=== PATIENT | female | born 1955 | race Caucasian/White ===

== ENCOUNTER 2016-09-13 23:29 | Emergency (ER) | payer MEDICARE, OTHER ==
[2016-09-14] MEDS ORDERED: HYDROmorphone 2 MG/ML SDV IM ONE (00:21)
[2016-09-14] MEDS ORDERED: Ondansetron 4 MG Tab.DIS PO ONE (00:21)
[2016-09-14] MEDS ORDERED: Acetaminophen/HYDROcodone 325-5 MG Tab PO ONE (02:01)
[2016-09-14 02:26] VITALS: BP 135/72
--- NOTE | 2016-09-15 09:51 | ER ---
DATE SEEN: 09/13/2016 TIME SEEN: The patient was seen at 2345 hours. CHIEF COMPLAINT: Back pain HISTORY OF PRESENT ILLNESS: The patient has had intermittent low back pain that has gotten worse recently. She has problems with her hips and her knees. is . The patient lives with her boyfriend. The patient is brought into the hospital by her son and his girlfriend. The patient denies loss of sensation of lower extremities or incontinence of urine or stool. She has difficulty getting up and rolling over, because of her low back pain. The back pain became more noticeable at 1900 hours this evening when she had difficulty getting out of a car. No history of falls or fractured wrist. 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 No history of recent or intercurrent bleeding. PAST MEDICAL HISTORY: Significant for alcoholism. She has drunk alcohol for 40 plus years, still continues drink. Subdural hemorrhage, bilateral knee and hip arthritis, dyslipidemia, depression, GERD, seizures, chronic kidney disease, myocardial infarction, DVTs, and cognitive deficits. MEDICATIONS: 1. Prilosec 40 mg b.i.d. 2. Aspirin 325 mg daily. 3. Warfarin 2.5 mg daily as directed. 4. B complex. 5. C vitamin complex. 6. Keppra 750 mg b.i.d. 7. Multivitamins with iron. 8. Fenofibric acid (choline) 135 mg daily, probably for triglyceride elevation. 9. Atorvastatin 20 mg daily. 10.Prozac 40 mg daily. REVIEW OF SYSTEMS: Negative except for that noted above. PHYSICAL EXAMINATION: VITAL SIGNS: Blood pressure 132/62, heart rate 87, respirations 14, oxygen saturation 97%, and temperature is 37.2 degrees. The patient's BMI is 40.4 - obesity. CONSTITUTIONAL: The patient has moderate pain, lying on her back, does not move. She has marked low back pain when I rotate her on her side so I could examine her lower back. HEENT: PERRLA intact. Pharynx without abnormality. Missing many teeth. NECK: Without thyromegaly, bruits, or masses in neck. LUNGS: Clear to auscultation without rales, rhonchi. HEART: S1, S2. No irregular rate and rhythm. No murmur. ABDOMEN: Increased abdominal girth. I do not feel the liver edge. Mild discomfort. BACK: Marked pain L1, L2, L3, L4 vertebrae. No paraspinal muscle spasm. Straight leg raise unable to perform because of the pain. I was able to raise her leg to no more than 10 degrees bilaterally. Absent knee jerks and ankle jerks. Muscle bulk lower extremities intact. No loss of sensation in the perineal or anal area. LABORATORY DATA: CAT scan of the back reveals L2-3 significant porous cystic changes without disk space and spinal listhesis. No compression fracture. Hemoglobin 7.9, white count 7.9, has microcytic iron deficiency anemia. Complete metabolic panel; sodium 138, potassium 3.7, chloride 109, CO2 is decreased at 21, GFR 50, BUN and creatinine ratio 10.9, and glucose 137. Total bilirubin 2.7, AST is triple ALT reflecting her alcoholism 65, ALT is 24, alkaline phosphatase 48, and calcium normal 8.9. Urinalysis; moderate occult blood, moderate bilirubin, large leukocyte esterase, and urine bacteria many. DIAGNOSES: 1. Marked cystic L2-3 bone changes with [id number] causing the patient's pain with marked spondylolisthesis. 2. Urinary tract infection - asymptomatic. 3. IDSA suggests not treating asymptomatic bacteria. She will not be treated, but has urine culture pending. 4. Severe back pain secondary to L2-3 cystic changes [id number]. 5. Obesity, 40.1 BMI. 6. Significant alcoholism with significant liver disease changes. At this point, I would anticipate liver to be enlarged but is not on palpation, consequently has experienced fibrosis with elevation of bilirubin and tripling of the AST ratio to ALT. 7. Anemia secondary either to blood loss or alcohol-induced bone marrow changes with thrombocytopenia of 104,000. Serum iron and iron binding capacity pending. I did not do a rectal exam as it was difficult for her to get up and move around. She had a dramatic response with decreased pain with Dilaudid 1 mg IM and Zofran 4 mg orally. PLAN: The patient is sent home with 8 tablets Vicodin 1 q.4 hours p.r.n. pain and to follow up with doctor in 7 days. She has not seen a doctor in 2 or more years. She needs support for ambulation, using a walker. She needs to be around a responsible adult. With the drinking alcohol, she has significant liver disease with cirrhosis. /[id number] LEONARDO/LEEANN
[2016-09-16 23:05] LABS: UNSATURATED IRON BIND CAPACITY 474 ug/dL (112-347)
== END 2016-09-14 02:23 | disposition home or self-care (01) ==
LOC: FB.ED 23:29
DX: M43.16 Spondylolisthesis, lumbar region (principal); N39.0 Urinary tract infection, site not specified; E66.9 Obesity, unspecified; Z68.41 Body mass index [BMI] 40.0-44.9, adult; F10.20 Alcohol dependence, uncomplicated; K70.2 Alcoholic fibrosis and sclerosis of liver; E80.7 Disorder of bilirubin metabolism, unspecified; D64.9 Anemia, unspecified; D69.6 Thrombocytopenia, unspecified; M17.0 Bilateral primary osteoarthritis of knee; M16.10 Unilateral primary osteoarthritis, unspecified hip; E78.5 Hyperlipidemia, unspecified; F32.9 Major depressive disorder, single episode, unspecified; K21.9 Gastro-esophageal reflux disease without esophagitis; N18.9 Chronic kidney disease, unspecified; I25.2 Old myocardial infarction; Z86.718 Personal history of other venous thrombosis and embolism; Z79.01 Long term (current) use of anticoagulants; R41.89 Other symptoms and signs involving cognitive functions and awareness; Z79.82 Long term (current) use of aspirin; Z79.899 Other long term (current) drug therapy
CPT/HCPCS: 36415; 72131; 80053; 81001; 83540; 83550; 85025; 85610; 87086; 87088; 87186; 96372; 99284; A9270; J1170; 99283

== ENCOUNTER 2016-09-19 09:37 | Inpatient (IN) | payer MEDICARE, OTHER ==
--- NOTE | 2016-09-19 10:04 | EDM.PDOC ---
ED HPI GENERAL MEDICAL PROBLEM - General Chief Complaint: Gastrointestinal Problem Stated Complaint: BLOODY STOOL Time Seen by Provider: 09/19/16 09:45 Source of Information: Reports: Patient, Family, Old Records History Limitations: Reports: No Limitations - History of Present Illness INITIAL COMMENTS - FREE TEXT/NARRATIVE: 61 yo female on ASA and warfarin and who has a chronic hx of alcohol abuse presents with weakness and bloody stools. Was here in the ER here recently with back pain and was found to have an incidental UTI for which she is now on Bactrim DS(since Thursday). EMS transported. Patient has had dried blood in her mouth since at least yesterday. A recent INR was 3.5 about 9 days ago in the clinic per her significant other. Is not a smoker. Has had a little coughing since yesterday. Has been SOB for "awhile". EMS did not start an IV, but did initiate oxygen per nc. - Related Data Allergies Allergy/AdvReac Type Severity Reaction Status Date / Time No Known Allergies Allergy Verified 09/19/16 09:50 Home Meds: Home Meds B Complex With Vitamin C [B-Complex Plus Vitamin C] 1 tab PO DAILY 07/04/13 [ History] FLUoxetine [PROzac] 40 mg PO DAILY 07/04/13 [History] atorvaSTATin [Lipitor] 20 mg PO BEDTIME 07/04/13 [History] levETIRAcetam [Keppra] 750 mg PO BID 04/12/14 [History] Omeprazole [Prilosec] 40 mg PO BID 08/16/14 [History] Aspirin 325 mg PO DAILY PRN 09/13/16 [History] Fenofibric Acid (Choline) [Fenofibric Acid] 135 mg PO DAILY 09/13/16 [History] Multivits-Min/Iron/FA/Lutein [Centrum Silver Women Tablet] 1 tab PO DAILY [History] Warfarin Sodium [Jantoven] 2.5 mg PO ASDIRECTED 09/13/16 [History] Past Medical History Cardiovascular History: Reports: High Cholesterol, Hypertension, CO, Stents, Other (See Below) Other Cardiovascular History: Filter [employer] History: Reports: Psychiatric History: Reports: Depression - Past Surgical History GI Surgical History: Reports: Cholecystectomy, Colonoscopy Social & Family History - Tobacco Use Smoking Status *Q: Never Smoker Years of Tobacco use: 20 Used Tobacco, but Quit: Yes Month Tobacco Last Used: 15 yrs ago Second Hand Smoke Exposure: No - Caffeine Use Caffeine Use: Reports: Energy drinks - Alcohol Use Days Per Week of Alcohol Use: 7 Number of Drinks Per Day: 3 Total Drinks Per Week: 21 - Recreational Drug Use Recreational Drug Use: No - Living Situation & Occupation Living situation: Reports: other (with significant other of nine yrs) Occupation: unemployed ED ROS GENERAL - Review of Systems Review Of Systems: See Below Constitutional: Reports: Weakness, Fatigue HEENT: Reports: Other (oral bleeding ? since yesterday.) Respiratory: Reports: Shortness of Breath Cardiovascular: Reports: No Symptoms Endocrine: Reports: Fatigue GI/Abdominal: Reports: No Symptoms, Bloody Stool : Reports: No Symptoms Musculoskeletal: Reports: No Symptoms Skin: Reports: No Symptoms Neurological: Reports: No Symptoms ED EXAM, GI/ABD - Physical Exam Exam: See Below Exam Limited By: No Limitations General Appearance: Alert, WD/WN, No Apparent Distress Eyes: Bilateral: Normal Appearance, Pale Conjunctiva Ears: Normal External Exam, Normal Canal, Hearing Grossly Normal, Normal TMs Nose: Normal Inspection, Normal Mucosa, No Blood Throat/Mouth: Normal Oropharynx, Normal Voice, No Airway Compromise, Other ( Dried blood on her teeth.) Head: Atraumatic, Normocephalic Neck: Normal Inspection, Supple, Non-Tender Respiratory/Chest: No Respiratory Distress, Lungs Clear, Normal Breath Sounds, No Accessory Muscle Use Cardiovascular: Regular Rate, Rhythm, No Edema GI/Abdominal: Normal Bowel Sounds, Soft, Non-Tender, No Distention Back Exam: Normal Inspection Extremities: Normal Inspection, Normal Range of Motion, Non-Tender, No Pedal Edema Neurological: Alert, Oriented, CN II-XII Intact, No Motor/Sensory Deficits Psychiatric: Normal Affect, Normal Mood Skin Exam: Warm, Dry, Pallor Lymphatic: No Adenopathy Course - Vital Signs Text/Narrative:: LR 150 ml/h IV, oxygen per nasal cannula, Unasyn 1.5 gm IV, Azithromycin 500 mg IV, FFP 4 units IV ordered, Vitamin K 5 mg subcut, pRBC's 2 untis ordered CXR-pneumonia bilaterally Dr. Slater called @ 1100h Last Recorded V/S: Last Vital Signs Temp 36.5 C 09/19/16 09:50 Pulse 83 09/19/16 09:50 Resp 17 09/19/16 09:50 BP 122/42 L 09/19/16 09:50 Pulse Ox 96 09/19/16 09:50 - Orders/Labs/Meds Orders: Active Orders 24 hr Category Date Time Status Cardiac Monitoring [RC] .As Directed Care 09/19/16 09:50 Active Oxygen Therapy Adult [Oxygen Therapy, ED] [RC] Care 09/19/16 09:50 Active ASDIRECTED Chest 1V Frontal [CR] Stat Exams 09/19/16 09:49 Taken CULTURE BLOOD [BC] Stat Lab 09/19/16 10:50 Ordered FRESH FROZEN PLASMA [BBK] Stat Lab 09/19/16 10:18 Received TYPE AND SCREEN [BBK] Stat Lab 09/19/16 10:18 Received Ampicillin/Sulbactam Na [Unasyn] 1.5 gm Med 09/19/16 10:47 Active Sodium Chloride 0.9% [Normal Saline] 50 ml IV ONETIME Azithromycin [Zithromax] 500 mg Med 09/19/16 10:47 Active Sodium Chloride 0.9% [Normal Saline] 250 ml IV ONETIME Lactated Ringers [Ringers, Lactated] 1,000 ml Med 09/19/16 10:00 Active IV ASDIRECTED Sodium Chloride 0.9% [Normal Saline] 250 ml Med 09/19/16 11:00 Ordered IV ASDIRECTED Sodium Chloride 0.9% [Saline Flush] Med 09/19/16 09:52 Active 10 ml FLUSH ASDIRECTED PRN Saline Lock Insert [OM.PC] Routine Oth 09/19/16 09:52 Ordered Transfuse PRBC [Transfuse Red Blood Cells] [COMM] Stat Oth 09/19/16 10:59 Ordered Medication Orders Lactated Ringer's (Ringers, Lactated) 1,000 mls @ 150 mls/hr IV ASDIRECTED DILLON Last Admin: 09/19/16 10:12 Dose: 150 mls/hr Ampicillin Sodium/Sulbactam (Sodium 1.5 gm/ Sodium Chloride) 50 mls @ 100 mls/ hr IV ONETIME ONE Stop: 09/19/16 11:16 Azithromycin 500 mg/ Sodium (Chloride) 250 mls @ 250 mls/hr IV ONETIME ONE Stop: 09/19/16 11:46 Sodium Chloride (Normal Saline) 250 mls @ 100 mls/hr IV ASDIRECTED DILLON Sodium Chloride (Saline Flush) 10 ml FLUSH ASDIRECTED PRN PRN Reason: Keep Vein Open Last Admin: 09/19/16 10:12 Dose: 10 ml Labs: Laboratory Tests 09/19/16 09/19/16 09/19/16 Range/Units 10:18 10:18 10:18 WBC 20.4 H (4.5-12.0) X10-3/uL RBC 3.89 (3.23-5.20) x10(6)uL Hgb 7.1 L (11.5-15.5) g/dL Hct 23.9 L (30.0-51.3) % MCV 61.4 L (80-96) fL MCH 18.3 L (27.7-33.6) pg MCHC 29.7 L (32.2-35.4) g/dL RDW 23.3 H (11.5-15.5) % Plt Count 99 L (125-369) X10(3)uL PT > 100.0 H* (8.7-11.1) Sodium 128 L D (135-145) mmol/L Potassium 4.0 (3.5-5.3) mmol/L Chloride 98 L D (100-110) mmol/L Carbon Dioxide 18 L (23-29) mmol/L BUN 56 H D (8-23) mg/dL Creatinine 2.5 H* (0.6-1.3) mg/dL Est Cr Clr Drug Dosing TNP Estimated GFR (MDRD) 20 L (>60) BUN/Creatinine Ratio 22.4 H (9-20) Glucose 95 (80-116) mg/dL Calcium 8.2 L (8.6-10.2) mg/dL Total Bilirubin 4.5 H (0.1-1.3) mg/dL AST 101 H D (5-27) IU/L ALT 28 H D (14-26) IU/L Alkaline Phosphatase 52 L (56-112) IU/L Total Protein 7.3 (6.0-8.0) g/dL Albumin 2.7 L (3.2-4.6) g/dL Globulin 4.6 g/dL Albumin/Globulin Ratio 0.6 Urine Color (YELLOW) Urine Appearance (CLEAR) Urine pH (5.0-6.5) Ur Specific [place] (1.010-1.025) Urine Protein (NEGATIVE) mg/dL Urine Glucose (UA) (NEGATIVE) mg/dL Urine Ketones (NEGATIVE) mg/dL Urine Occult Blood (NEGATIVE) Urine Nitrite (NEGATIVE) Urine Bilirubin (NEGATIVE) Urine Urobilinogen (NEGATIVE) mg/dL Ur Leukocyte Esterase (NEGATIVE) Urine RBC (0) Urine WBC (0) Ur Squamous Epith Cells (NS,R,O) 09/19/16 Range/Units 10:34 WBC (4.5-12.0) X10-3/uL RBC (3.23-5.20) x10(6)uL Hgb (11.5-15.5) g/dL Hct (30.0-51.3) % MCV (80-96) fL MCH (27.7-33.6) pg MCHC (32.2-35.4) g/dL RDW (11.5-15.5) % Plt Count (125-369) X10(3)uL PT (8.7-11.1) Sodium (135-145) mmol/L Potassium (3.5-5.3) mmol/L Chloride (100-110) mmol/L Carbon Dioxide (23-29) mmol/L BUN (8-23) mg/dL Creatinine (0.6-1.3) mg/dL Est Cr Clr Drug Dosing Estimated GFR (MDRD) (>60) BUN/Creatinine Ratio (9-20) Glucose (80-116) mg/dL Calcium (8.6-10.2) mg/dL Total Bilirubin (0.1-1.3) mg/dL AST (5-27) IU/L ALT (14-26) IU/L Alkaline Phosphatase (56-112) IU/L Total Protein (6.0-8.0) g/dL Albumin (3.2-4.6) g/dL Globulin g/dL Albumin/Globulin Ratio Urine Color Yellow (YELLOW) Urine Appearance Slightly cloudy (CLEAR) Urine pH 5.0 (5.0-6.5) Ur Specific [place] 1.015 (1.010-1.025) Urine Protein Negative (NEGATIVE) mg/dL Urine Glucose (UA) Normal (NEGATIVE) mg/dL Urine Ketones Negative (NEGATIVE) mg/dL Urine Occult Blood Moderate H (NEGATIVE) Urine Nitrite Negative (NEGATIVE) Urine Bilirubin Small H (NEGATIVE) Urine Urobilinogen >=12 H (NEGATIVE) mg/dL Ur Leukocyte Esterase Negative (NEGATIVE) Urine RBC Not seen (0) Urine WBC Not seen (0) Ur Squamous Epith Cells Few H (NS,R,O) Meds: Medications Generic Name Dose Route Start Last Admin Trade Name Freq PRN Reason Stop Dose Admin Lactated Ringer's 1,000 mls @ 150 mls/hr 09/19/16 10:00 09/19/16 10:12 Ringers, Lactated IV 150 mls/hr ASDIRECTED DILLON Administration Ampicillin Sodium/Sulbactam 50 mls @ 100 mls/hr 09/19/16 10:47 Sodium 1.5 gm/ Sodium Chloride IV 09/19/16 11:16 ONETIME ONE Azithromycin 500 mg/ Sodium 250 mls @ 250 mls/hr 09/19/16 10:47 Chloride IV 09/19/16 11:46 ONETIME ONE Sodium Chloride 250 mls @ 100 mls/hr 09/19/16 11:00 Normal Saline IV ASDIRECTED DILLON Sodium Chloride 10 ml 09/19/16 09:52 09/19/16 10:12 Saline Flush FLUSH 10 ml ASDIRECTED PRN Administration Keep Vein Open Discontinued Medications Generic Name Dose Route Start Last Admin Trade Name Freq PRN Reason Stop Dose Admin Phytonadione 5 mg 09/19/16 10:46 09/19/16 10:53 Aquamephyton SUBCUT 09/19/16 10:47 5 mg ONETIME ONE Administration Departure - Departure Time of Disposition: 11:15 Disposition: Admitted As Inpatient 66 Condition: poor Clinical Impression: Elevated INR, Alcohol abuse, Hypoxia Pneumonia Qualifiers: Pneumonia type: due to unspecified organism Laterality: bilateral Lung location : unspecified part of lung Qualified Code(s): J18.9 - Pneumonia, unspecified organism GI bleed Qualifiers: GI bleed type/associated pathology: anorectal hemorrhage Qualified Code(s): K62.5 - Hemorrhage of anus and rectum Anemia Qualifiers: Anemia type: iron deficiency Iron deficiency anemia type: chronic blood loss Qualified Code(s): D50.0 - Iron deficiency anemia secondary to blood loss ( chronic) - Discharge Information Referrals: Chung Spears MD [Primary Care Provider] - Forms: ED Department Discharge - My Orders Last 24 Hours: My Active Orders 09/19/16 09:49 Chest 1V Frontal [CR] Stat 09/19/16 09:50 Cardiac Monitoring [RC] .As Directed Oxygen Therapy Adult [Oxygen Therapy, ED] [RC] ASDIRECTED 09/19/16 09:52 Sodium Chloride 0.9% [Saline Flush] 10 ml FLUSH ASDIRECTED PRN Saline Lock Insert [OM.PC] Routine 09/19/16 10:00 Lactated Ringers [Ringers, Lactated] 1,000 ml IV ASDIRECTED 09/19/16 10:18 FRESH FROZEN PLASMA [BBK] Stat TYPE AND SCREEN [BBK] Stat 09/19/16 10:47 Ampicillin/Sulbactam Na [Unasyn] 1.5 gm Sodium Chloride 0.9% [Normal Saline] 50 ml IV ONETIME Azithromycin [Zithromax] 500 mg Sodium Chloride 0.9% [Normal Saline] 250 ml IV ONETIME 09/19/16 10:50 CULTURE BLOOD [BC] Stat 09/19/16 10:59 Transfuse PRBC [Transfuse Red Blood Cells] [COMM] Stat 09/19/16 11:00 Sodium Chloride 0.9% [Normal Saline] 250 ml IV ASDIRECTED - Assessment/Plan Last 24 Hours: My Active Orders 09/19/16 09:49 Chest 1V Frontal [CR] Stat 09/19/16 09:50 Cardiac Monitoring [RC] .As Directed Oxygen Therapy Adult [Oxygen Therapy, ED] [RC] ASDIRECTED 09/19/16 09:52 Sodium Chloride 0.9% [Saline Flush] 10 ml FLUSH ASDIRECTED PRN Saline Lock Insert [OM.PC] Routine 09/19/16 10:00 Lactated Ringers [Ringers, Lactated] 1,000 ml IV ASDIRECTED 09/19/16 10:18 FRESH FROZEN PLASMA [BBK] Stat TYPE AND SCREEN [BBK] Stat 09/19/16 10:47 Ampicillin/Sulbactam Na [Unasyn] 1.5 gm Sodium Chloride 0.9% [Normal Saline] 50 ml IV ONETIME Azithromycin [Zithromax] 500 mg Sodium Chloride 0.9% [Normal Saline] 250 ml IV ONETIME 09/19/16 10:50 CULTURE BLOOD [BC] Stat 05/12/17 10:59 Transfuse PRBC [Transfuse Red Blood Cells] [COMM] Stat 09/19/16 11:00 Sodium Chloride 0.9% [Normal Saline] 250 ml IV ASDIRECTED
[2016-09-19] MEDS: Lactated Ringers 1,000 ML IV SCH (10:12)
[2016-09-19] MEDS: Sodium Chloride 0.9% 10 ML Syringe FLUSH PRN ×2 (10:12→19:55)
[2016-09-19] MEDS ORDERED: Ampicillin/Sulbactam Na 1.5 GM in Sodium Chloride 0.9% 50 ML IV ONE (10:47)
[2016-09-19] MEDS ORDERED: Azithromycin 500 MG in Sodium Chloride 0.9% 250 ML IV ONE (10:47)
[2016-09-19] MEDS ORDERED: Sodium Chloride 0.9% 10 ML Syringe FLUSH PRN (11:01)
[2016-09-19] MEDS ORDERED: Pantoprazole 40 MG Vial IVPUSH ONE (11:01)
[2016-09-19] MEDS ORDERED: Ondansetron 4 MG/2 ML SDV IV PRN (11:01)
[2016-09-19] MEDS ORDERED: LORazepam 2 MG/ML MDV IVPUSH PRN (11:10)
[2016-09-19] MEDS ORDERED: Thiamine 100 MG Tab PO ONE (11:13)
[2016-09-19] MEDS ORDERED: Sodium Chloride 0.9% 1,000 ML IV SCH (11:15)
[2016-09-19] MEDS ORDERED: Sodium Chloride 0.9% 250 ML IV SCH (11:30)
--- NOTE | 2016-09-19 11:45 | CR ---
INDICATION: Hypoxia, cough. CHEST: AP portable upright view of the chest 09/19/2016 was compared with coremaker helper view from CT scan of the chest from 08/21/2014. The heart is enlarged. The aorta is calcified in the arch area. Calcification appears increased, compared with 2014. Overlying EKG leads are noted. Pulmonary vasculature is prominent, raising question of CHF. Infiltration is scattered about the lung on the right at the lung base, right upper lung field, and throughout the left lung. Aspiration pneumonia is suspected with this appearance. Findings should be correlated clinically, however. No definite pleural effusion was seen. MTDD
[2016-09-19] MEDS ORDERED: FENOFIBRIC ACID 135 MG PO SCH (12:45)
[2016-09-19] MEDS ORDERED: MULTIVITS MIN PO SCH (12:45)
[2016-09-19] MEDS ORDERED: LEVETIRACETAM 750 MG PO SCH (12:45)
[2016-09-19] MEDS ORDERED: LUTEIN PO SCH (12:45)
[2016-09-19] MEDS ORDERED: [UNRECOGNIZED DRUG - OTHER] PO SCH (12:45)
[2016-09-19] MEDS ORDERED: IRON PO SCH (12:45)
[2016-09-19] MEDS ORDERED: Acetaminophen 325 MG Tab PO PRN (14:25)
[2016-09-19] MEDS: oxyCODONE 5 MG Tab PO PRN (15:12)
--- NOTE | 2016-09-19 16:55 | PCM.HP ---
H&P History of Present Illness - General Date of Service: 09/19/16 Admit Problem/Dx: Admission Diagnosis/Problem Admission Diagnosis/Problem Pneumonia Source of Information: Patient, Family, Old Records History Limitations: Reports: No Limitations - History of Present Illness Initial Comments - Free Text/Narative: This is a 61-year-old female was brought in because of generalized weakness, and bright red blood rectum. She was seen last week for with a UTI placed on Bactrim ,but patient is on Coumadin as well. Thus today she's had 2 large red movement bowel movements causing her to feel weak.She also complained of shortness of breath but denied any fever or chills. 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 She had a DVT back in 2010 also. After fall and a subdural hematoma & intraventricular hemorrhage, Coumadin was discontinued resulting in another pulmonary and a thrombosis in 2014. She is also known to be an alcoholic last alcohol drink was Thursday. She complains of chronic back pain admitting headache chest pain or abdominal pain she has no vomiting. Lower Back Pain Score (Numeric/FACES): 4 - Related Data Allergies/Adverse Reactions: Allergies Allergy/AdvReac Type Severity Reaction Status Date / Time No Known Allergies Allergy Verified 09/19/16 09:50 Home Medications: Home Meds B Complex With Vitamin C [B-Complex Plus Vitamin C] 1 tab PO DAILY 07/04/13 [ History] FLUoxetine [PROzac] 40 mg PO DAILY 07/04/13 [History] atorvaSTATin [Lipitor] 20 mg PO BEDTIME 07/04/13 [History] levETIRAcetam [Keppra] 750 mg PO BID 04/12/14 [History] Omeprazole [Prilosec] 40 mg PO BID 08/16/14 [History] Aspirin 325 mg PO DAILY PRN 09/13/16 [History] Fenofibric Acid (Choline) [Fenofibric Acid] 135 mg PO DAILY 09/13/16 [History] Multivits-Min/Iron/FA/Lutein [Centrum Silver Women Tablet] 1 tab PO DAILY [History] Warfarin Sodium [Jantoven] 1.25 mg PO ASDIRECTED 09/13/16 [History] Albuterol [Ventolin HFA] 2 puff .XX Q4HR PRN 09/19/16 [History] Past Medical History Cardiovascular History: Reports: Afib, High Cholesterol, Hypertension, [place], Stents, Other (See Below) Other Cardiovascular History: Filter Respiratory History: Reports: Asthma [employer] History: Reports: None, Psychiatric History: Reports: Depression - Past Surgical History Respiratory Surgical History: Reports: None GI Surgical History: Reports: Cholecystectomy, Colonoscopy Musculoskeletal Surgical History: Reports: None Social & Family History - Tobacco Use Smoking Status *Q: Never Smoker Years of Tobacco use: 20 Used Tobacco, but Quit: Yes Month Tobacco Last Used: 15 yrs ago Second Hand Smoke Exposure: No - Caffeine Use Caffeine Use: Reports: Energy Drinks - Alcohol Use Days Per Week of Alcohol Use: 7 Number of Drinks Per Day: 3 Total Drinks Per Week: 21 - Recreational Drug Use Recreational Drug Use: No - Living Situation & Occupation Living situation: Reports: Other (with significant other of nine yrs) Occupation: Unemployed H&P Review of Systems - Review of Systems: Review Of Systems: ROS reveals no pertinent complaints other than HPI. Exam - Exam Exam: See Below - Vital Signs Vital Signs: Last Vital Signs Temp 98.0 F 09/19/16 16:30 Pulse 85 09/19/16 16:30 Resp 16 09/19/16 16:30 BP 91/61 09/19/16 16:30 Pulse Ox 91 L 09/19/16 16:00 Weight: 98.021 kg - Exam Quality Assessment: Supplemental Oxygen General: Alert, Oriented, 4 HEENT: No: Scleral Icterus Neck: Supple, Trachea Midline, 2 Lungs: Clear to Auscultation, Normal Respiratory Effort Cardiovascular: Regular Rate, Regular Rhythm Abdomen: Normal Bowel Sounds, Soft (Female) Exam: Deferred Rectal (Female) Exam: Deferred Back Exam: Normal Inspection, Full Range of Motion, NT Extremities: 3, Normal Inspection, 10 Skin: Warm, Dry, Intact Neurological: Cranial Nerves Intact, Reflexes Equal Bilateral Neuro Extensive - Mental Status: Alert, Oriented x3, Normal Mood/Affect, Normal Cognition Neuro Extensive - Motor, Sensory, Reflexes: CN II-XII Intact, Normal Gait, Normal Reflexes Psychiatric: Depressed - Patient Data Result Diagrams: 09/19/16 10:18 09/19/16 10:18 *Q Meaningful Use (ADM) - VTE *Q VTE Criteria *Q: - Stroke *Q Stroke Criteria *Q: - AMI *Q AMI Criteria *Q: - Problem List (1) Palliative care patient SNOMED Code(s): 149920567 ICD Code: Z51.5 - ENCOUNTER FOR PALLIATIVE CARE Status: Acute Current Visit: Yes (2) Alcohol abuse SNOMED Code(s): 96017744 ICD Code: F10.10 - ALCOHOL ABUSE, UNCOMPLICATED Status: Chronic Current Visit: Yes (3) Anemia SNOMED Code(s): 113632730 ICD Code: D64.9 - ANEMIA, UNSPECIFIED Status: Chronic Current Visit: Yes Qualifiers: Anemia type: iron deficiency Iron deficiency anemia type: chronic blood loss Qualified Code(s): D50.0 - Iron deficiency anemia secondary to blood loss (chronic) (4) Elevated INR SNOMED Code(s): 150510741, 407440573 ICD Code: R79.1 - ABNORMAL COAGULATION PROFILE Status: Acute Current Visit: Yes (5) GI bleed SNOMED Code(s): 96750781 ICD Code: K92.2 - GASTROINTESTINAL HEMORRHAGE, UNSPECIFIED Status: Acute Current Visit: Yes Qualifiers: GI bleed type/associated pathology: anorectal hemorrhage Qualified Code(s) : K62.5 - Hemorrhage of anus and rectum (6) Pneumonia SNOMED Code(s): 681516728 ICD Code: J18.9 - PNEUMONIA, UNSPECIFIED ORGANISM Status: Acute Current Visit: Yes Qualifiers: Pneumonia type: aspiration pneumonia Laterality: bilateral Lung location : unspecified part of lung Qualified Code(s): J18.9 - Pneumonia, unspecified organism (7) GERD (gastroesophageal reflux disease) SNOMED Code(s): 272666108 ICD Code: K21.9 - GASTRO-ESOPHAGEAL REFLUX DISEASE WITHOUT ESOPHAGITIS Status: Acute Priority: Medium Current Visit: No Problem Details: guaiac for any sign of upper/lower gi source. Qualifiers: Esophagitis presence: without esophagitis Qualified Code(s): K21.9 - Gastro -esophageal reflux disease without esophagitis (8) Pulmonary embolus SNOMED Code(s): 17368357, 27994361 ICD Code: I26.99 - OTHER PULMONARY EMBOLISM WITHOUT ACUTE COR PULMONALE Status: Acute Priority: High Current Visit: No Onset Date: 08/21/14 Problem Details: (9) Cognitive deficit as late effect of traumatic brain injury SNOMED Code(s): 811503590 ICD Code: F06.8 - OTH MENTAL DISORDERS DUE TO KNOWN PHYSIOLOGICAL CONDITION; S06.9X0S - UNSP INTRACRANIAL INJURY W/O LOSS OF CONSCIOUSNESS, SEQUELA Status : Chronic Priority: Medium Current Visit: No Problem Details: (10) History of DVT of lower extremity SNOMED Code(s): 607564753 ICD Code: Z86.718 - PERSONAL HISTORY OF OTHER VENOUS THROMBOSIS AND EMBOLISM Status: Chronic Priority: Medium Current Visit: No Problem Details: (11) Hx of falling, presenting hazards to health SNOMED Code(s): 467342854, 896102866, 371458005 ICD Code: Z91.81 - HISTORY OF FALLING Status: Chronic Priority: Medium Current Visit: No Problem Details: Fall percautions. (12) Depression SNOMED Code(s): 95762261 ICD Code: F32.9 - MAJOR DEPRESSIVE DISORDER, SINGLE EPISODE, UNSPECIFIED Status: Acute Current Visit: Yes Qualifiers: Depression Type: major depressive disorder (13) HTN (hypertension) SNOMED Code(s): 53235948 ICD Code: I10 - ESSENTIAL (PRIMARY) HYPERTENSION Status: Acute Current Visit: Yes Qualifiers: Hypertension type: essential hypertension Qualified Code(s): I10 - Essential (primary) hypertension (14) CAD (coronary artery disease) SNOMED Code(s): 42846280 ICD Code: I25.10 - ATHSCL HEART DISEASE OF [place] CORONARY ARTERY W/O ANG PCTRS Status: Acute Current Visit: Yes Qualifiers: Coronary Disease-Associated Artery/Lesion type: deering artery Problem List Initiated/Reviewed/Updated: Yes Orders Last 24hrs: Active Orders 24 hr Category Date Time Status RED BLOOD CELLS LP [BBK] Routine Lab 09/19/16 10:18 Results FLUoxetine [PROzac] Med 09/20/16 09:00 Active 40 mg PO DAILY Fenofibrate,Micronized [Fenofibrate] Med 09/20/16 09:00 Active 134 mg PO DAILY LORazepam [Ativan] Med 09/19/16 11:10 Active 1 mg IVPUSH Q4H PRN Multivitamins/Minerals [Vitamins and Minerals] Med 09/20/16 09:00 Active 1 tab PO DAILY Sodium Chloride 0.9% [Normal Saline] 1,000 ml Med 09/19/16 11:15 Active IV ASDIRECTED Sodium Chloride 0.9% [Normal Saline] 250 ml Med 09/19/16 11:30 Active IV ASDIRECTED Vitamin B Complex with C [Total B With C] Med 09/20/16 09:00 Active 1 each PO DAILY levETIRAcetam [Keppra] Med 09/19/16 21:00 Active 250 mg PO BID levETIRAcetam [Keppra] Med 09/19/16 21:00 Active 500 mg PO BID oxyCODONE Med 09/19/16 14:28 Active 5 mg PO Q4H PRN Transfuse Fresh Frozen Plasma [COMM] Urgent Oth 09/19/16 11:23 Ordered Medication Orders Fenofibrate (Fenofibrate) 134 mg PO DAILY D[facility] Fluoxetine HCl (Prozac) 40 mg PO DAILY [facility] Lactated Ringer's (Ringers, Lactated) 1,000 mls @ 150 mls/hr IV ASDIRECTED D[facility]ON Last Admin: 09/19/16 10:12 Dose: 150 mls/hr Sodium Chloride (Normal Saline) 250 mls @ 100 mls/hr IV ASDIRECTED [facility] Sodium Chloride (Normal Saline) 1,000 mls @ 50 mls/hr IV ASDIRECTED [facility] Sodium Chloride (Normal Saline) 250 mls @ 100 mls/hr IV ASDIRECTED [facility] Levetiracetam (Keppra) 500 mg PO BID [facility] Levetiracetam (Keppra) 250 mg PO BID [facility] Lorazepam (Ativan) 1 mg IVPUSH Q4H PRN PRN Reason: Withdrawal Symptoms Multivitamins (Total B With C) 1 each PO DAILY [facility] Multivitamins/Minerals (Vitamins And Minerals) 1 tab PO DAILY [facility] Ondansetron HCl (Zofran) 4 mg IV Q6H PRN PRN Reason: Nausea/Vomiting Oxycodone HCl (Oxycodone) 5 mg PO Q4H PRN PRN Reason: Pain Last Admin: 09/19/16 15:12 Dose: 5 mg Sodium Chloride (Saline Flush) 10 ml FLUSH ASDIRECTED PRN PRN Reason: Keep Vein Open Last Admin: 09/19/16 10:12 Dose: 10 ml Sodium Chloride (Saline Flush) 10 ml FLUSH ASDIRECTED PRN PRN Reason: Keep Vein Open Assessment/Plan Comment:: The patient is already sitting 2 units of PRBCs. She's also getting 4 units of FFP's. I agree with Elroyn or Daniel . We'll repeat an INR, serial hemoglobin and hematocrit. Will hold off on Coumadin until INR has normalized. We'll keep in the ICU, with fall precautions and CIWA scale protocol. The rest of the home medications for blood pressure anxiety will be continued.
[2016-09-19] MEDS ORDERED: Piperacillin/Tazobactam 3.375 GM in Sodium Chloride 0.9% 50 ML IV SCH (17:00)
[2016-09-19] MEDS: Sodium Chloride 0.9% 250 ML IV SCH (18:38)
[2016-09-19] MEDS ORDERED: Omeprazole 20 MG Cap.CR PO SCH (21:00)
[2016-09-19] MEDS: levETIRAcetam 250 MG Tab PO SCH (21:27)
[2016-09-19] MEDS: levETIRAcetam 500 MG Tab PO SCH (21:28)
[2016-09-20] MEDS: oxyCODONE 5 MG Tab PO PRN ×2 (00:17→16:40)
[2016-09-20] MEDS ORDERED: Vancomycin 500 MG SDV IV SCH (08:45)
[2016-09-20] MEDS: Lactated Ringers 1,000 ML IV SCH ×2 (08:45→18:17)
[2016-09-20] MEDS: FLUoxetine 20 MG Cap PO SCH (09:32)
[2016-09-20] MEDS: Fenofibrate Nanocrystallized 145 MG Tab PO SCH (09:32)
[2016-09-20] MEDS: Vitamin B Complex with Vitamin C Tab PO SCH (09:32)
[2016-09-20] MEDS: levETIRAcetam 500 MG Tab PO SCH ×2 (09:32→20:57)
[2016-09-20] MEDS: levETIRAcetam 250 MG Tab PO SCH ×2 (09:32→20:57)
[2016-09-20] MEDS: Multivitamins, Therapeutic with Minerals Tab PO SCH (09:32)
[2016-09-20] MEDS: cefTRIAXone 1,000 MG in Sodium Chloride 0.9% 50 ML IV SCH (09:33)
--- NOTE | 2016-09-20 09:51 | PN ---
DATE SEEN: 09/20/2016 REASON FOR VISIT: Anemia. HISTORY OF PRESENT ILLNESS: A 61-year-old female, admitted yesterday because of anemia due to bright red blood per rectum. Per report, overnight there has been no fever and has had no pain, has done well. No more blood in the stool. She has had 3 units of PRBCs and 2 units of FFPs. This morning, she has no complaints. REVIEW OF SYSTEMS: No fever. No abdominal pain. No chest pain. No headaches. No anxiety. ALLERGIES: No known allergies. PHYSICAL EXAMINATION: VITAL SIGNS: Blood pressure is 117/52, pulse 87, and oxygenation 91% on 3 L of nasal cannula. EARS, NOSE, and THROAT: Negative. NECK: Supple. CHEST: End-expiratory rhonchi. EXTREMITIES: No edema. ABDOMEN: Soft, benign. MENTAL STATUS: Alert. LABORATORY DATA: White cell count is 19.3, hemoglobin 8.6. INR is 4.4. Sodium is 130, CO2 is 19, creatinine is down to 2.1. UA negative. Blood cultures preliminary also from the aerobic blood culture were positive. IMPRESSION: 1. Aspiration pneumonia. 2. Positive blood cultures. 3. Alcohol liver disease. 4. Chronic kidney disease. 5. Alcoholic hepatitis. 6. Anemia, which has improved. PLAN: My plan is to continue IV fluid replacement and keep her on the CIWA protocol. As we await for the ID of the blood cultures, I will add vancomycin 1 g IV daily given a creatinine clearance. We will also continue with ampicillin and sulbactam. We will repeat blood work in the morning. /[id number] FRANKIE/LEEANN
[2016-09-20] MEDS: Levofloxacin/Dextrose 5%-Water 250 MG in Premix Bag 1 BAG IV SCH (10:14)
[2016-09-21] MEDS: Lactated Ringers 1,000 ML IV SCH ×2 (01:04→07:51)
[2016-09-21] MEDS: Albuterol/Ipratropium 3.0-0.5 MG/3 ML Neb Soln NEB SCH ×4 (07:32→22:41)
--- NOTE | 2016-09-21 07:37 | PN ---
DATE SEEN: 09/21/2016 CHIEF COMPLAINT: Pneumonia. HISTORY OF PRESENT ILLNESS: A 61-year-old female, being treated for pneumonia. Overnight, she needed 5 L of oxygenation to keep oxygenation above 94%. She has no fever. Urine output is adequate. She denies any pain. She has a very weak and flat affect. REVIEW OF SYSTEMS: All other systems unremarkable. No recent bloody stools. ALLERGIES: No known allergies. PHYSICAL EXAMINATION: GENERAL: She is alert. Her blood pressure is 123/58, her pulse is 80, and temperature 98.1. ENT: Negative. NECK: Supple. CARDIOVASCULAR: Normal. RESPIRATORY: End-expiratory rhonchi. EXTREMITIES: 1 to 2+ peripheral edema. ABDOMEN: Soft and benign. MENTAL STATUS: Flat affect. NEUROLOGIC: No focal findings. LABS: Pending. IMPRESSION: 1. Aspiration pneumonia. 2. Anemia due to blood loss. 3. High INR. 4. Chronic or acute renal failure. 5. Alcohol abuse. 6. Cognitive dysfunction due to traumatic brain injury. 7. Depression. 8. Sepsis possibly due to pneumonia. 9. Atrial fibrillation history of. 10.History of DVT and PE. PLAN: We will transfer to medical floor. Hep-Lock the IV fluids. Start DuoNebs q.i.d. as scheduled. Repeat blood work in the morning and a chest x-ray. I did order also a Keppra level. /[id number] FRANKIE/LEEANN
[2016-09-21] MEDS: cefTRIAXone 1,000 MG in Sodium Chloride 0.9% 50 ML IV SCH (08:57)
[2016-09-21] MEDS: levETIRAcetam 250 MG Tab PO SCH ×2 (08:57→20:48)
[2016-09-21] MEDS: levETIRAcetam 500 MG Tab PO SCH ×2 (08:57→20:48)
[2016-09-21] MEDS: Fenofibrate Nanocrystallized 145 MG Tab PO SCH (08:57)
[2016-09-21] MEDS: Vitamin B Complex with Vitamin C Tab PO SCH (08:57)
[2016-09-21] MEDS: FLUoxetine 20 MG Cap PO SCH (08:57)
[2016-09-21] MEDS: Multivitamins, Therapeutic with Minerals Tab PO SCH (08:57)
[2016-09-21] MEDS: Levofloxacin/Dextrose 5%-Water 250 MG in Premix Bag 1 BAG IV SCH (10:10)
[2016-09-21] MEDS: oxyCODONE 5 MG Tab PO PRN ×2 (10:10→15:49)
[2016-09-22] MEDS: oxyCODONE 5 MG Tab PO PRN (00:08)
[2016-09-22] MEDS: Albuterol/Ipratropium 3.0-0.5 MG/3 ML Neb Soln NEB SCH ×2 (07:06→11:26)
[2016-09-22] MEDS ORDERED: Furosemide 40 MG/4 ML VIAL IVPUSH ONE (08:33)
[2016-09-22] MEDS: Sodium Chloride 0.9% 10 ML Syringe FLUSH PRN ×2 (09:06→14:22)
[2016-09-22] MEDS: Sodium Chloride 0.9% 250 ML IV SCH (09:26)
[2016-09-22] MEDS: cefTRIAXone 1,000 MG in Sodium Chloride 0.9% 50 ML IV SCH (09:27)
[2016-09-22] MEDS: Vitamin B Complex with Vitamin C Tab PO SCH (09:34)
[2016-09-22] MEDS: Fenofibrate Nanocrystallized 145 MG Tab PO SCH (09:34)
[2016-09-22] MEDS: FLUoxetine 20 MG Cap PO SCH (09:34)
[2016-09-22] MEDS: Multivitamins, Therapeutic with Minerals Tab PO SCH (09:34)
[2016-09-22] MEDS: levETIRAcetam 250 MG Tab PO SCH (09:35)
[2016-09-22] MEDS: levETIRAcetam 500 MG Tab PO SCH (09:35)
[2016-09-22] MEDS ORDERED: Diltiazem 120 MG Cap.CD PO SCH (10:15)
--- NOTE | 2016-09-22 11:35 | CR ---
INDICATION: Short of breath, crackles, follow-up. CHEST: A single AP upright view of the chest in a wheelchair 09/22/2016 was compared with 09/19/2016, revealing severe increase in bilateral infiltration, more severe on the left than right. Findings may be on the basis of CHF with acute pulmonary edema in a patient with COPD, although other infiltrative etiology such as aspiration pneumonia or a severe pneumonia of various etiologies cannot be excluded. The heart is again noted to be enlarged; the aorta tortuous. Overlying EKG leads are noted. IMPRESSION: Marked change in the appearance of the chest with severe increase in bilateral infiltration, especially on the left, in a patient with probable CHF. Findings most likely represent acute pulmonary edema in a patient with COPD. This should be correlated clinically. Aspiration pneumonia or other severe pneumonia cannot be excluded. Report was given by phone to Dr. Slater at approximately 1005 hours. [facility]
--- NOTE | 2016-09-22 12:16 | PN ---
DATE SEEN: 09/22/2016 REASON FOR VISIT: Pneumonia. HISTORY OF PRESENT ILLNESS: This is a 61-year-old female, who was admitted on Thursday with bright red blood per rectum and pneumonia. She has needed 5 L of oxygenation, but feels much better this morning. In addition, she was noted to have a heart rate of going up to 155. She denies any chest pain, but has chronic back pain. She has a history of depression, seizure disorders that are stable. REVIEW OF SYSTEMS: No fever has been reported. No nausea or vomiting. Her urine output has been minimal. She also complains of leg swelling. Her shortness of breath is slightly worse. SOCIAL HISTORY: She does not smoke. She drinks regularly. ALLERGIES: Please see the nurse's notes. MEDICATIONS: Please see the nurse's notes. PHYSICAL EXAMINATION: VITAL SIGNS: Blood pressure is 120/67, pulse is 142, and temperature is 98.1, oxygenation 89% on 5 L. EARS, NOSE, and THROAT: Negative. NECK: Supple. CARDIOVASCULAR: Tachycardia. RESPIRATORY SYSTEM: There are crackles bilaterally. EXTREMITIES: 1 to 2+ peripheral edema. ABDOMEN: Soft and benign. LABORATORY DATA: Blood culture has grown Staphylococcus aureus. Hemoglobin is 8.4, this morning; white cell count 21.5. INR 2.3 and creatinine is 2.4. IMPRESSION: 1. Aspiration pneumonia. 2. Sepsis with Staphylococcus aureus, unknown etiology. 3. Anemia due to gastrointestinal blood loss. 4. Chronic renal failure. 5. Depression, stable. PLAN: I will repeat a chest x-ray this morning, and an echocardiogram tomorrow morning. A 12-lead EKG has also been ordered. I gave 40 mg of IV Lasix time x1 dose to see if it improves oxygenation and induces diuresis. She is on triple therapy with Levaquin, Zosyn, and vancomycin, but the sensitivities show that Staphylococcus aureus is insensitive to Levaquin, as such we will discontinue. INR is therapeutic. I see no reason, however, to restart the Coumadin, given her recent bleed, but a decision will have to be made at some point, because of previous history of multiple PE and DVT. /[id number] TN/MODL
[2016-09-22] MEDS ORDERED: Furosemide 20 MG/2 ML VIAL IVPUSH SCH (14:00)
[2016-09-22 15:02] VITALS: BP 115/55
--- NOTE | 2016-09-22 15:23 | DISCH ---
DISCHARGE DATE: 09/22/2016 REASON FOR ADMISSION: 1. Bright red blood per rectum. 2. Anemia due to GI bleed. 3. Aspiration pneumonia. 4. Alcohol abuse. DISCHARGE DIAGNOSES: 1. Bright red blood per rectum. 2. Anemia due to GI bleed. 3. Aspiration pneumonia. 4. Alcohol abuse. 5. Chronic renal failure. 6. Hypoxia, question pulmonary edema. BRIEF HISTORY AND HOSPITAL COURSE: A 61-year-old female, admitted because of bright red blood per rectum with a hemoglobin of 6.4 and high INR. She got several units of blood, FFPs, and vitamin K. the bleeding improved, hemoglobin came up to 8.4, however, she continues to be hypoxic, needing more oxygenation. She also developed atrial fibrillation and sepsis growing Staph aureus in the blood. She was given triple antibiotic therapy initially and fluids, but by Thursday morning, there was a little improvement in terms of oxygen status, and creatinine. A decision was made to transfer to [place] to obtain further treatment. Please note that I spent more than 35 minutes in the discharge of this patient. /[id number] FRANKIE/LEEANN
== END 2016-09-22 14:53 | DRG 871 ==
LOC: FB.ED 09:37 → FB.ICU 11:08 → FB.MS 09-21 06:50
PROVIDERS: ADMIT Family Medicine; ATTEND Family Medicine
DX: J18.9 Pneumonia, unspecified organism (principal); K62.5 Hemorrhage of anus and rectum; A41.9 Sepsis, unspecified organism; J69.0 Pneumonitis due to inhalation of food and vomit; I10 Essential (primary) hypertension; I26.99 Other pulmonary embolism without acute cor pulmonale; K92.1 Melena; B95.61 Methicillin susceptible Staphylococcus aureus infection as the cause of diseases classified elsewhere; D50.0 Iron deficiency anemia secondary to blood loss (chronic); I12.9 Hypertensive chronic kidney disease with stage 1 through stage 4 chronic kidney disease, or unspecified chronic kidney disease; Z79.82 Long term (current) use of aspirin; N18.9 Chronic kidney disease, unspecified; R09.02 Hypoxemia; I48.91 Unspecified atrial fibrillation; M79.89 Other specified soft tissue disorders; R79.1 Abnormal coagulation profile; E78.00 Pure hypercholesterolemia, unspecified; I25.10 Atherosclerotic heart disease of native coronary artery without angina pectoris; J45.909 Unspecified asthma, uncomplicated; K21.9 Gastro-esophageal reflux disease without esophagitis; F32.9 Major depressive disorder, single episode, unspecified; G40.909 Epilepsy, unspecified, not intractable, without status epilepticus; F10.10 Alcohol abuse, uncomplicated; I25.2 Old myocardial infarction; Z87.820 Personal history of traumatic brain injury; Z79.01 Long term (current) use of anticoagulants; Z79.899 Other long term (current) drug therapy; Z86.718 Personal history of other venous thrombosis and embolism; Z95.5 Presence of coronary angioplasty implant and graft; Z91.81 History of falling; Z51.5 Encounter for palliative care
CPT/HCPCS: 36415; 71010; 80053; 81001; 83735; 83880; 85027; 85610; 86850; 86900; 86901; 86920 ×2; 86922 ×2; 87040; 87077; 87186; 96361; 96365; 96372; 99285; J0287; J3430; J7050 ×2; J7120; 36430; 80177; 85025; 93005; 94150; 94640-76; A9270; A9270-GY; C9113; J0456; J0696; J1940; J1956; J2543; J3370; J7040; J7620; P9016; P9017